=== PATIENT | female | born 1975 | race Caucasian/White ===

== ENCOUNTER → 2016-12-20 | Outpatient (REF) ==
[~2016-12-20] MED LIST: MOTRIN 800800 MG/TAB PO; PERCOCET 325 MG1 TA2 PO; PRENATAL1 TA1 PO
[2016-12-20 19:35] LABS: THYROID STIMULATING HORMONE 1.43 uIU/mL (0.465-4.680)
== END ==
LOC: ZLAB.WCH 18:21
PROVIDERS: Nurse Practitioner Family
DX: Z01.89 Encounter for other specified special examinations (principal)

== ENCOUNTER 2017-11-05 01:04 | Emergency (ER) | payer BC ==
[~2017-11-05] VITALS: Ht 157.5 cm; Wt 52.3 kg
[2017-11-05 01:19] VITALS: TEMP 97.1
[2017-11-05 04:08] LABS: HEMATOCRIT 38.3 % (37.0-47.0); HEMOGLOBIN 13.3 g/dl (12.5-16.0); MEAN CELL VOLUME 89 fl (80.0-100.0); MEAN CORPUSCULAR HEMOGLOBIN 31 pg (27.0-31.0); MEAN CORPUSCULAR HGB CONC 35 g/dl (33.0-37.0); MEAN PLATELET VOLUME 10.2 fl (7.4-10.4); PLATELET COUNT 280 K/mm3 (130-400); RED BLOOD COUNT 4.31 M/mm3 (4.10-5.30); REDCELL DISTRIBUTION WIDTH-CV 11.8 % (11.5-14.5)
[2017-11-05 04:11] LABS: TRICYCLIC ANTIDEPRESS URINE NEGATIVE
[2017-11-05 04:17] LABS: CALCIUM 9.2 mg/dL (8.4-10.2); CREATININE, serum 0.71 mg/dL (0.52-1.25); POTASSIUM 3.7 mmol/L (3.4-5.0)
[2017-11-05 04:32] LABS: BAND 4 % (0-10); LYMPHOCYTE 16 % (20.0-51.0); NEUTROPHILS 74 % (42.0-75.2)
[2017-11-05 04:33] LABS: PLATELET ESTIMATE NORMAL (NORMAL)
[2017-11-05 05:30] VITALS: BP 99/66; PULSE 85
== END 2017-11-05 05:30 | disposition home or self-care (01) ==
LOC: COL.ER 01:04
PROVIDERS: Emergency Medicine
DX: F10.129 Alcohol abuse with intoxication, unspecified (principal)
CPT/HCPCS: J2765; J7030

== ENCOUNTER → 2022-07-07 | Outpatient (CLI) | payer BC | LOC: MC.RAD 11:30 | DX: Z12.31 Encounter for screening mammogram for malignant neoplasm of breast (principal) ==